=== PATIENT | female | born 1965 | race Caucasian/White ===

== ENCOUNTER 2024-03-20 09:20 | Inpatient (IN) | payer OTHER ==
[2024-03-20] MEDS: Sodium Chloride 0.9% 10 ML Syringe FLUSH PRN (10:10)
[2024-03-20 10:21] LABS: BASOPHILS PERCENT AUTO 0.5 % (0.0-1.0); EOSINOPHILS ABSOLUTE AUTO 0.1 K/mm3 (0.0-0.4); EOSINOPHILS PERCENT AUTO 0.6 % (0.0-6.0); HEMATOCRIT 38.7 % (37.0-47.0); HEMOGLOBIN 13.3 gm/dl (12.0-16.0); IMMATURE GRAN ABSOLUTE AUTO 0.02 K/mm3 (0.00-0.05); IMMATURE GRAN PERCENT AUTO 0.2 % (0.0-0.4); LYMPHOCYTES PERCENT AUTO 12.7 % (24.0-44.0); MEAN CORPUSCULAR HGB CONC 34.4 g/dl (32.0-36.0); MEAN CORPUSCULAR VOLUME 87.2 fl (83.0-99.0); MEAN PLATELET VOLUME 9.1 fl (9.4-12.3); MONOCYTES ABSOLUTE AUTO 0.7 K/mm3 (0.0-0.8); MONOCYTES PERCENT AUTO 8.7 % (0.0-8.0); NEUTROPHILS ABSOLUTE AUTO 6.3 K/mm3 (1.8-7.7); NEUTROPHILS PERCENT AUTO 77.3 % (41.0-71.0); PLATELET COUNT,PLT 237 K/mm3 (150-400); RED BLOOD CELL COUNT 4.44 M/mm3 (4.10-5.30); WHITE BLOOD CELL COUNT,WBC 8.19 K/mm3 (3.9-11.3)
[2024-03-20 10:22] LABS: APPEARANCE,URINE CLEAR (Clear); BILIRUBIN,URINE NEGATIVE (Negative); COLOR,URINE YELLOW (Yellow); GLUCOSE,URINE NEGATIVE (Negative); KETONES,URINE NEGATIVE (Negative); LEUKOCYTE ESTERASE,URINE TRACE (Negative); NITRITE,URINE NEGATIVE (Negative); OCCULT BLOOD,URINE NEGATIVE (Negative); PH,URINE 7.5 (5.0-8.0); PROTEIN,URINE TRACE (Negative); UROBILINOGEN,URINE 0.2 (0.2-1.0)
[2024-03-20] MEDS: Polyethylene Glycol/Electrolytes 4,000 ML Bottle PO ONE (10:25)
[2024-03-20 10:31] LABS: AMORPHOUS SEDIMENT,URINE FEW /hpf (NOT SEEN); BACTERIA,URINE MODERATE /hpf (FEW); MUCUS,URINE FEW /hpf (FEW); RBC,URINE 0-5 /hpf (0-5)
[2024-03-20 10:51] LABS: ALBUMIN 3.5 g/dl (3.4-5.0); ANION GAP 11.5 (5-15); BILIRUBIN TOTAL 0.4 mg/dL (0.2-1.0); BUN/CREATININE RATIO 6.7 (14-18); CALCIUM 9.2 mg/dL (8.5-10.1); CREATININE 0.9 mg/dL (0.55-1.02); EST CRCL DRUG DOSING (CG) 64.56 mL/min; POTASSIUM,K 3.5 mEq/L (3.5-5.1); PROTEIN TOTAL,TP 7.1 g/dl (6.4-8.2)
[2024-03-20] MEDS: Iopamidol 612 MG/ML 100 ML Bottle IVPUSH ONE (14:54)
[2024-03-20] MEDS: Sodium Chloride 0.9% 10 ML Syringe FLUSH ONE (14:54)
[2024-03-20] MEDS: Sodium Chloride 0.9% 1,000 ML IV ONE (15:50)
[2024-03-20] MEDS: fentaNYL 100 MCG/2 ML SDV IVPUSH ONE ×2 (16:55→17:18)
[2024-03-20] MEDS ORDERED: fentaNYL 250 MCG/5 ML SDV ONE (17:45)
[2024-03-20] MEDS ORDERED: Propofol 200 MG/20 ML SDV ONE (17:45)
[2024-03-20] MEDS ORDERED: Rocuronium 50 MG/5 ML Vial ONE (17:45)
[2024-03-20] MEDS ORDERED: Lidocaine 1% 5 ML VIAL ONE (17:45)
[2024-03-20] MEDS ORDERED: Midazolam 1 MG/ML 2 ML SDV ONE (17:45)
[2024-03-20] MEDS ORDERED: Ondansetron 4 MG/2 ML SDV ONE (17:45)
[2024-03-20] MEDS ORDERED: Lactated Ringers 1,000 ML ONE (18:04)
[2024-03-20] MEDS ORDERED: ePHEDrine 50 MG/ML SDV ONE (18:11)
[2024-03-20] MEDS ORDERED: Ketamine 200 MG/20 ML MDV ONE (18:18)
[2024-03-20] MEDS: Bupivacaine 0.5% 30 ML SDV ONE (18:24)
[2024-03-20] MEDS: EPINEPHrine 1 MG/ML SDV ONE (18:24)
[2024-03-20] MEDS ORDERED: Ondansetron 4 MG/2 ML SDV IVPUSH PRN (18:30)
[2024-03-20] MEDS ORDERED: HYDROmorphone 0.5 MG/0.5 ML Syringe IVPUSH PRN (18:30)
[2024-03-20] MEDS ORDERED: fentaNYL 100 MCG/2 ML SDV IVPUSH PRN (18:30)
[2024-03-20] MEDS ORDERED: droPERidol 5 MG/2 ML SDV IVPUSH PRN (18:30)
[2024-03-20] MEDS ORDERED: HYDROmorphone 0.5 MG/0.5 ML Syringe ONE (18:35)
[2024-03-20] MEDS ORDERED: Sugammadex Sodium 200 MG/2 ML VIAL IV ONE (18:59)
[2024-03-20] MEDS ORDERED: Ketorolac 30 MG/ML SDV ONE (19:56)
[2024-03-20] MEDS ORDERED: Acetaminophen 325 MG Tab PO PRN (20:07)
[2024-03-20] MEDS ORDERED: SUMAtriptan 50 MG Tab PO PRN (20:18)
[2024-03-20] MEDS ORDERED: Succinylcholine 200 MG/10 ML MDV ONE (20:30)
[2024-03-20] MEDS: oxyCODONE 5 MG Tab PO PRN (21:04)
[2024-03-20] MEDS: Lactated Ringers 1,000 ML IV SCH (21:23)
[2024-03-20] MEDS: Piperacillin/Tazobactam 4.5 GM Vial ONE (21:27)
[2024-03-20] MEDS: Ketorolac 15 MG/ML SDV IVPUSH SCH (22:00)
[2024-03-20] MEDS ORDERED: Dexamethasone 4 MG/ML 5 ML MDV ONE (22:02)
[2024-03-20] MEDS: Sodium Chloride 0.9% 100 ML ONE (23:11)
[2024-03-20] MEDS: Ketorolac 15 MG/ML SDV IM SCH (23:14)
[2024-03-20] MEDS: HYDROmorphone 0.5 MG/0.5 ML Syringe IVPUSH PRN (23:47)
[2024-03-21] MEDS: Calcium Carbonate 500 MG Tab.Chew PO ONE ×2 (01:59→03:38)
[2024-03-21] MEDS: Pantoprazole 40 MG Tab.CR PO SCH (06:16)
[2024-03-21] MEDS: FLUoxetine 20 MG Cap PO SCH (09:50)
[2024-03-21] MEDS: buPROPion 150 MG Tab.ER PO SCH (09:50)
[2024-03-21] MEDS ORDERED: Calcium Carbonate 500 MG Tab.Chew PO PRN (09:50)
[2024-03-21] MEDS: Rosuvastatin 10 MG Tab PO SCH (09:50)
[2024-03-21] MEDS: Simethicone 80 MG Tab.Chew PO PRN (10:36)
[2024-03-21] MEDS: Psyllium Husk Powder Sugar Free 5.85 GM Packet PO SCH (12:29)
[2024-03-21] MEDS: Docusate Sodium 100 MG Cap PO SCH (12:29)
[2024-03-21] MEDS: Polyethylene Glycol 3350 Powder 17 GM Packet PO SCH (12:29)
[2024-03-21] MEDS: Ondansetron 4 MG Tab.DIS PO PRN (17:59)
[2024-03-22 05:53] LABS: HEMATOCRIT 31.3 % (37.0-47.0); MEAN CORPUSCULAR HEMOGLOBIN 30.8 pg (28.0-32.0); MEAN CORPUSCULAR HGB CONC 34.5 g/dl (32.0-36.0); MEAN CORPUSCULAR VOLUME 89.2 fl (83.0-99.0); MEAN PLATELET VOLUME 9.4 fl (9.4-12.3); PLATELET COUNT,PLT 189 K/mm3 (150-400); RED BLOOD CELL COUNT 3.51 M/mm3 (4.10-5.30); WHITE BLOOD CELL COUNT,WBC 8.54 K/mm3 (3.9-11.3)
[2024-03-22 05:55] LABS: HEMOGLOBIN 10.8 gm/dl (12.0-16.0)
[2024-03-22 06:17] LABS: ANION GAP 9.2 (5-15); CALCIUM 8.1 mg/dL (8.5-10.1); CREATININE 0.8 mg/dL (0.55-1.02); EST CRCL DRUG DOSING (CG) 72.63 mL/min; POTASSIUM,K 3.2 mEq/L (3.5-5.1)
[2024-03-22] MEDS: Losartan 50 MG Tab PO SCH (08:53)
[2024-03-22] MEDS: Hydrochlorothiazide 12.5 MG Cap PO SCH (08:54)
[2024-03-22] MEDS: PROGESTERONE MICRONIZED 200 MG PO SCH (08:54)
[2024-03-22] MEDS ORDERED: LOSARTAN PO SCH (09:00)
[2024-03-22] MEDS ORDERED: HYDROCHLOROTHIAZIDE PO SCH (09:00)
== END 2024-03-22 09:47 | disposition home or self-care (01) | DRG 358 ==
LOC: JD.ED 09:20 → JD.SDS 17:19 → JD.MS 20:50
PROVIDERS: ADMIT Surgery; ATTEND Surgery
PROC: 0DJD8ZZ Inspection of Lower Intestinal Tract, Via Natural or Artificial Opening Endoscopic (ICD-10-PCS; 2024-03-20)
PROC: 0DJD0ZZ Inspection of Lower Intestinal Tract, Open Approach (ICD-10-PCS; principal; 2024-03-20 18:00)
DX: K56.609 Unspecified intestinal obstruction, unspecified as to partial versus complete obstruction (principal); K59.00 Constipation, unspecified; I10 Essential (primary) hypertension; G43.909 Migraine, unspecified, not intractable, without status migrainosus; F41.9 Anxiety disorder, unspecified; H54.7 Unspecified visual loss; Z79.899 Other long term (current) drug therapy; Z79.2 Long term (current) use of antibiotics; Z87.440 Personal history of urinary (tract) infections; Z86.16 Personal history of COVID-19; Z90.89 Acquired absence of other organs; E66.9 Obesity, unspecified; Z68.33 Body mass index [BMI] 33.0-33.9, adult
CPT/HCPCS: 00840; 36415; 74177; 74177-26; 80048; 80053; 81001; 82947; 83690; 85025; 85027; 87086; 93010; 96374; 99285; 99285-25; A9270-GY; J0171; J0330; J0665; J1100; J1171; J1885; J2250; J2405; J2704; J3010; J3490; J7030; J7120; Q9967

== ENCOUNTER 2024-04-22 07:51 | Day surgery (SDC) | payer OTHER ==
[~2024-04-22 07:51] MED LIST: Propofol 200 MG/20 ML SDV ONE; Sodium Chloride 0.9% 10 ML Syringe FLUSH PRN; Sodium Chloride 0.9% 10 ML Syringe FLUSH SCH
[2024-04-22] MEDS: Lactated Ringers 1,000 ML IV SCH (08:15)
[2024-04-22] MEDS ORDERED: Propofol 200 MG/20 ML SDV ONE ×2 (08:23→08:35)
== END 2024-04-22 09:25 | disposition home or self-care (01) ==
LOC: JD.SDS 07:51
PROVIDERS: ATTEND Surgery
DX: D12.5 Benign neoplasm of sigmoid colon (principal); K57.30 Diverticulosis of large intestine without perforation or abscess without bleeding; K56.609 Unspecified intestinal obstruction, unspecified as to partial versus complete obstruction; G30.9 Alzheimer's disease, unspecified; F02.80 Dementia in other diseases classified elsewhere, unspecified severity, without behavioral disturbance, psychotic disturbance, mood disturbance, and anxiety
CPT/HCPCS: 45384; J2704; J7120; 00811